=== PATIENT | female | born 1970 | race Two or more races ===

== ENCOUNTER 2021-02-04 02:03 | Emergency (ER) | payer SELFPAY ==
[~2021-02-04] VITALS: Ht 165.1 cm; Wt 65.8 kg
[2021-02-04] MEDS ORDERED: methylPREDNISolone SOD SUCC 125 MG/2 ML VIAL ONE (02:23)
--- NOTE | 2021-02-04 02:29 | NUR ---
RT at bedside for breathing tx.
[2021-02-04] MEDS ORDERED: IPRATROPIUM BROMIDE 0.5 MG/2.5 ML NEBU NEB ONE ×3 (02:30→03:00)
[2021-02-04] MEDS ORDERED: methylPREDNISolone SOD SUCC 125 MG/2 ML VIAL IV ONE (02:30)
[2021-02-04] MEDS ORDERED: ALBUTEROL SULFATE 2.5 MG/3 ML NEBU NEB ONE ×3 (02:30→03:00)
[2021-02-04] MEDS ORDERED: IPRATROPIUM BROMIDE 0.5 MG/2.5 ML NEBU ONE ×3 (02:34→03:26)
[2021-02-04] MEDS ORDERED: ALBUTEROL SULFATE 2.5 MG/3 ML NEBU ONE ×3 (02:34→03:25)
[2021-02-04] MEDS ORDERED: ALBU18HF2 INH (02:38)
[2021-02-04] MEDS ORDERED: PRED50TA PO (02:38)
--- NOTE | 2021-02-04 03:50 | NUR ---
Patient discharged to home in stable condition. Written and verbal after care instructions given. Patient verbalizes understanding of instructions. Stressed follow up or return to ER for worsening s/s. Patient ambulated with steady gait.
[2021-02-04 03:51] VITALS: BP 169/98
== END 2021-02-04 03:51 | disposition home or self-care (01) ==
LOC: ER 02:09
DX: J45.901 Unspecified asthma with (acute) exacerbation (principal)
CPT/HCPCS: 94640 ×3; 96374; 99284; J2930; A4663; J3590